=== PATIENT | male | born 1955 | race Caucasian/White ===

== ENCOUNTER 2020-01-13 11:29 | Emergency (ER) | payer BC, SELFPAY ==
[2020-01-13] VITALS (7 sets, daily range): BP systolic 107–156; BP diastolic 46–73; PULSE 60–90; RESP 16–20; TEMP 37.1; O2SAT 95–98
--- NOTE | ~2020-01-13 | XR_ITS ---
EXAMINATION: XR chest 1V portable DATE: 01/13/2020 12:13 INDICATION: Chest pressure. COVID. TECHNIQUE: frontal view of the chest was obtained. COMPARISON: Chest radiograph dated 01/21/2019 FINDINGS: The lungs remain clear with no focal airspace opacities, pulmonary edema, pleural effusion or pneumot horax. The cardiomediastinal silhouette is normal. Hypertrophic change at the anterior first ribs. IMPRESSION: 1. No acute cardiopulmonary disease. Reviewed, dictated and finalized at location A.
--- NOTE | 2020-01-13 11:40 | ECG_ITS ---
Measurements Intervals [place] Rate: 81 P: 18 MD: 180 QRS: -38 QRSD: 85 T: 24 QT: 356 QTc: 416 Interpretive Statements SINUS RHYTHM LEFT AXIS DEVIATION EARLY PRECORDIAL R/S TRANSITION LOW QRS VOLTAGE IN PRECORDIAL LEADS BASELINE WANDER- I, III, AVL, AVF BORDERLINE ECG Electronically Signed On 01-13-2020 15:01:20 CDT by Zana Rubi D.O.
[2020-01-13 11:53] LABS: Basophils Absolute Auto 0.1 K/mm3 (0.0-0.1); Basophils Percent Auto 0.7 % (0.2-1.2); Eosinophils Absolute Auto 0.1 K/mm3 (0-0.3); Eosinophils Percent Auto 1.8 % (0-4.4); Hematocrit 41.7 % (42.0-52.0); Hemoglobin 13.9 g/dL (14.0-18.0); Immature Granulocyte Absolute 0.01 K/mm3 (0.00-0.031); Immature Granulocyte Percent A 0.1 % (0-0.5); Lymphocytes Absolute Auto 1.56 K/mm3 (0.9-3.2); Lymphocytes Percent Auto 22.1 % (18.3-44.2); Mean Corpuscular HGB Conc 33.3 g/dl (32-36); Mean Corpuscular Volume 89.9 fl (80-100); Monocytes Absolute Auto 0.7 K/mm3 (0.1-0.6); Monocytes Percent Auto 10.5 % (2.6-8.5); Neutrophils Absolute Auto 4.6 K/mm3 (1.3-6.7); Neutrophils Percent Auto 64.8 % (45.5-73.1); Platelet Count Result 156 k/mm3 (150-375); Red Blood Count 4.64 M/mm3 (4.6-6.20); Red Cell Distribution Width 12.9 % (11.5-14.5); White Blood Count 7.1 K/mm3 (4.5-10.0)
[2020-01-13 12:02] LABS: Prothrombin Time 12.6 Seconds (11.1-14.7)
[2020-01-13 12:03] LABS: Partial Thromboplastin Time 28.6 SECONDS (22.3-36.8)
[2020-01-13 12:06] LABS: Anion Gap 9 mmol/L (8-16); Blood Urea Nitrogen 18 mg/dL (9-20); Calcium 8.8 mg/dL (8.4-10.2); Carbon Dioxide 25 mmol/L (22-30); Chloride 103 mmol/L (98-107); Estimated CRCL calculation 103 ml/min; Estimated Glomerular Filt Rate > 60; Glucose 106 mg/dL (75-110); Potassium 3.7 mmol/L (3.4-5.0); Sodium 137 mmol/L (137-145)
[2020-01-13] MEDS: ASPIRIN 81 MG CHEWABLE TABLET 324 MG PO (12:14)
[2020-01-13 12:18] LABS: Troponin I < 0.012 ng/mL (0.000-0.034)
--- NOTE | 2020-01-13 12:30 | ED.GENADULT ---
HPI - General Adult General Chief complaint: Upper Respiratory Infection Stated complaint: cold sx Time Seen by Provider: 01/13/20 11:53 Source: patient Mode of arrival: ambulatory Limitations: no limitations History of Present Illness HPI narrative: Patient is a 64-year-old male who presents to emergency department for evaluation of mild chest discomfort for the last 3 days patient notes that he was tested for COVID today due to a individual at work testing positive patient notes he is only had some minimal cough over the last several days patient denies cough abdominal pain shortness of breath or dyspnea patient took some [id number] cough medicine with minimal improvement on arrival is in the room in no distress Related Data Home Medications Medication Instructions Recorded Confirmed aspirin [Aspir-81] 01/13/20 dicyclomine 10 mg PO BID 01/13/20 diltiazem HCl [DILT-XR] 120 mg PO DAILY 01/13/20 lisinopril-hydrochlorothiazide 1 tablet PO DAILY 01/13/20 Allergies Allergy/AdvReac Type Severity Reaction Status Date / Time iodine Allergy Intermediate Dyspnea / Verified 01/13/20 11:33 SOB, RED FACE, red chest, hives Contrast Media Allergy Intermediate Hives / Uncoded 01/13/20 11:33 Red Face, SOB Review of Systems Review of Systems: All systems reviewed & are unremarkable except as noted in HPI and below PMFSH Past Medical History Medical History Hyperlipidemia Hypertension Obesity Surgical History Surgical History History of orthopedic surgery Family History Family History (Updated 09/10/16 @ 23:56 by DOCTOR UNKNOWN) Father Family history of chronic obstructive pulmonary disease, Onset Age: 72 Family history of emphysema Patient's father is Sibling Family history of chronic obstructive pulmonary disease Family history of diabetes mellitus in first degree relative Social History Social History Smoking status: Never smoker Smoking end date: 06/06/79 Alcohol intake: current Gender identity (if verbalized by the patient): Male Exam Narrative: Exam Narrative: GENERAL: Well-appearing, well-nourished, and in no acute distress. HEAD: Normocephalic, atraumatic. EYES: PERRLA and EOMI. ENT: Nares clear, no rhinorrhea or epistaxis. Mucous membranes moist. CHEST: Clear to auscultation. No respiratory distress. No wheezes rales or rhonchi HEART: Regular rate and rhythm. No murmur heard. Normal peripheral pulses. ABDOMEN: Soft, nontender, distended EXTREMITIES: Normal range of motion. No edema. SKIN: Warm, dry, no rash. NEURO: No focal deficits. Alert and oriented x3. PSYCH: Normal mood and affect. Course Course Emergency Course: Patient in the room in no distress aware of case findings treatment plan and diagnosis felt appropriate for outpatient reevaluation no high risk changes in the imaging or blood work made aware of the findings agreeing to follow with primary care for further evaluation and pending COVID tests Vital Signs Vital signs: Vital Signs Temperature 98.7 F 01/13/20 11:35 Pulse Rate 88 01/13/20 11:35 Respiratory Rate 18 01/13/20 11:35 Blood Pressure 156/73 H 01/13/20 11:35 Pulse Oximetry 97 01/13/20 11:35 Temperature 98.7 F 01/13/20 13:49 Pulse Rate 64 01/13/20 13:50 Respiratory Rate 16 01/13/20 13:50 Blood Pressure 126/46 L 01/13/20 13:50 Pulse Oximetry 98 01/13/20 13:50 Medical Decision Making MDM Narrative Medical decision making narrative: Patients EKGs and labs are without significant high risk changes. Cardiac risk factors were reviewed. Patient is felt likely to be low risk for ACS and reasonable for further risk stratification testing as an outpatient. Pain was not sudden or maximal in onset without tear
[2020-01-13 12:47] LABS: D Dimer 0.42 ug/mL (<0.48)
[2020-01-13] MEDS: FAMOTIDINE 20 MG/2 ML VIAL IV PUSH (13:19)
[2020-01-13 15:00] LABS: Troponin I < 0.012 ng/mL (0.000-0.034)
== END 2020-01-13 15:40 | disposition home or self-care (01) ==
PROVIDERS: Emergency Medicine Emergency Medical Services; Emergency Provider Emergency Medicine; PCP Family Medicine
DX: J06.9 Acute upper respiratory infection, unspecified (principal); Z20.828 Contact with and (suspected) exposure to other viral communicable diseases; Z79.82 Long term (current) use of aspirin; E78.5 Hyperlipidemia, unspecified; I10 Essential (primary) hypertension; E66.9 Obesity, unspecified; Z68.35 Body mass index [BMI] 35.0-35.9, adult; R94.31 Abnormal electrocardiogram [ECG] [EKG]
CPT/HCPCS: 36415; 71045; 80048; 84484; 85025; 85380; 85610; 85730; 93005; 96365; 96375; 99284; A9270; J0131

== ENCOUNTER 2021-01-09 10:57 | Emergency (ER) | payer OTHER, BC, SELFPAY ==
--- NOTE | ~2021-01-09 | XR_ITS ---
EXAMINATION: XR hip LT min 2V INDICATION: Left hip pain TECHNIQUE: Two views of left hip are obtained. COMPARISON: None available FINDINGS: Bone alignment is normal. There is no fracture. There is mild osteoarthritis. The soft tiss ues are unremarkable. IMPRESSION: 1. No acute osseous abnormality. Reviewed, dictated and finalized at location A.
[2021-01-09 11:08] VITALS: BP 129/62; PULSE 67; RESP 20; TEMP 36.5; O2SAT 98
[2021-01-09 11:21] VITALS: BP 129/62; PULSE 67; RESP 20; TEMP 36.5; O2SAT 98
--- NOTE | 2021-01-09 11:50 | ED.BACK ---
HPI - Back Pain/Injury General Chief Complaint: Back Pain/Injury Stated Complaint: lower back/hip pain Time Seen by Provider: 01/09/21 11:34 Source: patient and RN notes reviewed Mode of arrival: ambulatory Limitations: no limitations History of Present Illness HPI Narrative: Patient presents today complaining of left hip and low back pains since a fall at work on 11/29/2020. Reports that he slipped and fell on some oil and fell onto his left hip at that time. Patient reports pain at times radiates from the left low back laterally to the left hip. He is unable to lay on his left side in bed. He currently rates his pain 2/10 at rest. He has been taking Tylenol arthritis. Pain increases with movement as well as coughing and laughing. Denies loss of bowel or bladder control. Denies numbness or tingling. This is a Workmen's Comp. injury, but his job has not made strides to get him any evaluations or treatment. MD elicited complaint: back pain Related Data Home Medications Medication Instructions Recorded Confirmed aspirin [Aspir-81] 01/13/20 dicyclomine 10 mg PO BID 01/13/20 diltiazem HCl [DILT-XR] 120 mg PO DAILY 01/13/20 lisinopril-hydrochlorothiazide 1 tablet PO DAILY 01/13/20 atorvastatin 01/09/21 Allergies Allergy/AdvReac Type Severity Reaction Status Date / Time iodine Allergy Intermediate Dyspnea / Verified 01/13/20 11:33 SOB, RED FACE, red chest, hives Contrast Media Allergy Intermediate Hives / Uncoded 01/13/20 11:33 Red Face, SOB Review of Systems Review of Systems: CONSTITUTIONAL: Denies body aches, fever, chills, or sweats. EYES: Denies visual changes, redness, or discharge. ENT: Denies rhinorrhea, congestion, sore throat, or otalgia. CARDIOVASCULAR: Denies chest pain, palpitations, or edema. RESPIRATORY: Denies cough or dyspnea. GASTROINTESTINAL: Denies abdominal pain, nausea, vomiting, or diarrhea. GENITOURINARY: Denies dysuria or hematuria. SKIN: Denies rash, itching, or wounds. MUSCULOSKELETAL: Denies myalgia. + Low back pain, left hip pain NEUROLOGIC: Denies headache, numbness, tingling, or weakness. PSYCH: Denies depression or anxiety. PMFSH Past Medical History Medical History (Updated 01/09/21 @ 12:40 by Genie Brower, [facility], ) Hyperlipidemia Hypertension Obesity Surgical History Surgical History History of orthopedic surgery Family History Family History Father Family history of chronic obstructive pulmonary disease, Onset Age: 72 Family history of emphysema Patient's father is Sibling Family history of chronic obstructive pulmonary disease Family history of diabetes mellitus in first degree relative Social History Social History Smoking status: Never smoker Smoking end date: 06/06/79 Alcohol intake: current Gender identity (if verbalized by the patient): Male Comments At time of signature, I have reviewed and agree with nursing past medical, surgical, social and family history unless otherwise noted. Please see nursing chart for further information. There is no relevant family history pertinent to the presenting complaint Exam Narrative: GENERAL: Well-appearing, well-nourished, and in no acute distress. HEAD: Normocephalic, atraumatic. EYES: EOMI. No redness or drainage. Conjunctivae normal. ENT: Mucous membranes pink and moist. NECK: Normal AROM. CHEST: No respiratory distress. MUSCULOSKELETAL: No bony tenderness of the spine. Left lower lumbar paraspinal muscle tenderness. Left lateral hip tenderness. Distal sensation intact. Saddle sensation intact. Capillary refill normal. Pedal pulse normal. Foot push and pulls equal and strong. EXTREMITIES: No edema. Patient gets up from sitting position slowly due to
== END 2021-01-09 12:49 | disposition home or self-care (01) ==
PROVIDERS: Emergency Provider Nurse Practitioner
DX: S39.012A Strain of muscle, fascia and tendon of lower back, initial encounter (principal); W01.0XXA Fall on same level from slipping, tripping and stumbling without subsequent striking against object, initial encounter; Y99.0 Civilian activity done for income or pay; M54.32 Sciatica, left side; E78.5 Hyperlipidemia, unspecified; I10 Essential (primary) hypertension; E66.9 Obesity, unspecified; Z68.35 Body mass index [BMI] 35.0-35.9, adult
CPT/HCPCS: 73502; 99213; G0463

== ENCOUNTER 2021-09-24 08:14 | Emergency (ER) | payer MEDICARE, BC, MEDICAID, SELFPAY ==
--- NOTE | ~2021-09-24 | XR_ITS ---
EXAMINATION: XR chest 2V DATE: 09/24/2021 08:41 INDICATION: Left shoulder pain. Left chest pain. TECHNIQUE: Frontal and lateral views of the chest were obtained. COMPARISON: Chest single view 01/13/2020, chest CT 04/26/2012 FINDINGS: The chest demonstrates clear lungs without pneumonia, pleural effusion, or pneumothorax. Th e heart size is normal. IMPRESSION: 1. No acute cardiopulmonary disease. Reviewed, dictated and finalized at location B.
--- NOTE | 2021-09-24 08:19 | ECG_ITS ---
Measurements Intervals [place] Rate: 85 P: 33 [place]: 183 QRS: -35 QRSD: 92 T: 50 QT: 359 QTc: 428 Interpretive Statements SINUS RHYTHM MARKED LEFT AXIS DEVIATION [QRS AXIS < -30] LOW QRS VOLTAGE IN PRECORDIAL LEADS [QRS DEFLECTION < 1.0 mV IN CHEST LEADS] POSSIBLE RIGHT VENTRICULAR CONDUCTION DELAY [RSR (QR) IN V1/V2] BORDERLINE ECG COMPARED TO ECG 01/13/2020 11:44:38 NO SIGNIFICANT CHANGES Electronically Signed On 09-24-2021 16:49:20 CDT by Alex Day M.D.
[2021-09-24 08:21] VITALS: BP 133/97; PULSE 85; RESP 21; TEMP 36.9; O2SAT 96
--- NOTE | 2021-09-24 08:39 | PC.NURSE ---
Patient off unit to Radiology
[2021-09-24 08:40] LABS: Basophils Absolute Auto 0.1 K/mm3 (0.0-0.1); Basophils Percent Auto 0.9 % (0.2-1.2); Eosinophils Absolute Auto 0.2 K/mm3 (0-0.3); Eosinophils Percent Auto 2.6 % (0-4.4); Hematocrit 41.8 % (42.0-52.0); Hemoglobin 13.7 g/dL (14.0-18.0); Immature Granulocyte Absolute 0.02 K/mm3 (0.00-0.031); Immature Granulocyte Percent A 0.3 % (0-0.5); Lymphocytes Absolute Auto 1.49 K/mm3 (0.9-3.2); Lymphocytes Percent Auto 21.3 % (18.3-44.2); Mean Corpuscular HGB Conc 32.8 g/dl (32-36); Mean Corpuscular Hemoglobin 30.1 pg (26-34); Mean Corpuscular Volume 91.9 fl (80-100); Monocytes Absolute Auto 0.6 K/mm3 (0.1-0.6); Monocytes Percent Auto 8.7 % (2.6-8.5); Neutrophils Absolute Auto 4.6 K/mm3 (1.3-6.7); Neutrophils Percent Auto 66.2 % (45.5-73.1); Platelet Count Result 169 k/mm3 (150-375); Red Blood Count 4.55 M/mm3 (4.6-6.20); Red Cell Distribution Width 12.8 % (11.5-14.5)
--- NOTE | 2021-09-24 08:49 | PC.NURSE ---
Dr. Lerner at bedside to assess pt.
[2021-09-24 08:50] LABS: INR 1.1; Prothrombin Time 13.7 Seconds (11.1-14.7)
[2021-09-24 08:51] LABS: Partial Thromboplastin Time 31.3 SECONDS (22.3-36.8)
--- NOTE | 2021-09-24 08:57 | ED.GENADULT ---
HPI - General Adult General Chief complaint: Neck Pain/Injury Stated complaint: pain on left neck, arm Time Seen by Provider: 09/24/21 08:27 Source: patient Mode of arrival: ambulatory Limitations: no limitations History of Present Illness HPI narrative: Patient is 65 years old white male presented to the ED complaining of intermittent left shoulder pain for the last 15 years and since he had surgery on that shoulder, lately complaining of left neck pain but not today, also complaining of left lower leg pain for the last 3 days which is constant, worse with certain position. Patient been sedentary and sitting on the recliner since January 2021 because of lower back pain. Patient reported that he is a couch potato for months. Patient denies any fever, chills, nausea, vomiting, shortness of breath, chest pain. Related Data Home Medications Medication Instructions Recorded Confirmed aspirin [Aspir-81] 01/13/20 dicyclomine 10 mg PO BID 01/13/20 diltiazem HCl [DILT-XR] 120 mg PO DAILY 01/13/20 lisinopril-hydrochlorothiazide 1 tablet PO DAILY 01/13/20 atorvastatin 01/09/21 Allergies Allergy/AdvReac Type Severity Reaction Status Date / Time iodine Allergy Intermediate Dyspnea / Verified 09/24/21 08:31 SOB, RED FACE, red chest, hives Contrast Media Allergy Intermediate Hives / Uncoded 01/13/20 11:33 Red Face, SOB Review of Systems Review of Systems: CONSTITUTIONAL: Denies fever, chills, or sweats. EYES: Denies visual changes, redness, or discharge. ENT: Denies rhinorrhea, congestion, sore throat, or otalgia. CARDIOVASCULAR: Denies chest pain, palpitations, or edema. RESPIRATORY: Denies cough or dyspnea. GASTROINTESTINAL: Denies abdominal pain, nausea, vomiting, or diarrhea. GENITOURINARY: Denies dysuria or hematuria. SKIN: Denies rash or itching. MUSCULOSKELETAL: Denies back pain, joint pain, or myalgia. NEUROLOGIC: Denies headache, numbness, or weakness. PSYCHIATRIC: Denies anxiety or depression. [facility] Past Medical History Medical History (Updated 09/24/21 @ 09:06 by Irwin Lerner MD) Hyperlipidemia Hypertension Obesity Surgical History Surgical History History of orthopedic surgery Family History Family History Father Family history of chronic obstructive pulmonary disease, Onset Age: 72 Family history of emphysema Patient's father is Sibling Family history of chronic obstructive pulmonary disease Family history of diabetes mellitus in first degree relative Social History Social History Smoking status: Never smoker Smoking end date: 06/06/79 Alcohol intake: current Gender identity (if verbalized by the patient): Male Exam Narrative: General appearance: Well-developed, well-nourished, patient laying down in bed, semisitting position, does not look in pain or distress Skin: Normal color Head: Normocephalic, nontraumatic Eyes: Clear conjunctiva ENT: Oropharynx normal, ears normal, nose normal Neck: Supple, nontender Chest and respiratory: Airway patent, no respiratory distress, no accessory muscle use Heart: Regular rate/rhythm Abdomen: Soft, nontender, no organomegaly, quiet bowel sounds Vascular: Normal peripheral pulses, normal capillary refill. Musculoskeletal: Slight limited range of motion of left shoulder because of pain with certain movement, which have not showed no tenderness, no bruises, no rash Neurologic: Alert and oriented ?3, [employer]PECTING [employer]ATOR is normal as tested, no gross motor deficit Course Course
[2021-09-24 09:01] LABS: Alanine Aminotransferase 37 U/L (4-50); Albumin Level 4.1 g/dL (3.5-5.1); Alkaline Phosphatase 81 U/L (38-126); Anion Gap 5 mmol/L (8-16); Aspartate Amino Transferase 39 U/L (17-59); Blood Urea Nitrogen 17 mg/dL (9-20); Calcium 8.7 mg/dL (8.4-10.2); Carbon Dioxide 28 mmol/L (22-30); Chloride 104 mmol/L (98-107); Estimated CRCL calculation 95 ml/min; Estimated Glomerular Filt Rate > 60; Glucose 167 mg/dL (65-110); Lipase 44 U/L (23-300); Potassium 3.7 mmol/L (3.4-5.0); Sodium 137 mmol/L (137-145); Troponin I < 0.012 ng/mL (0.000-0.034)
[2021-09-24 09:15] VITALS: BP 131/78; PULSE 74; RESP 16; O2SAT 97
== END 2021-09-24 09:16 | disposition home or self-care (01) ==
PROVIDERS: Emergency Provider Emergency Medicine
DX: M25.512 Pain in left shoulder (principal); Z79.82 Long term (current) use of aspirin; E78.5 Hyperlipidemia, unspecified; I10 Essential (primary) hypertension; E66.9 Obesity, unspecified; Z68.25 Body mass index [BMI] 25.0-25.9, adult; Z87.891 Personal history of nicotine dependence; R94.31 Abnormal electrocardiogram [ECG] [EKG]; M79.662 Pain in left lower leg
CPT/HCPCS: 36415; 71046; 80053; 83690; 84484; 85025; 85610; 85730; 93005; 99284

== ENCOUNTER 2021-11-25 22:08 | Emergency (ER) | payer MEDICARE, BC, MEDICAID, SELFPAY ==
--- NOTE | ~2021-11-25 | XR_ITS ---
EXAMINATION: XR chest 2V Exam Date/Time: 11/25/2021 22:40 CDT HISTORY: SHORT SHARP RT SIDED CP,HX HTN Comparison: 09/24/2021. RESULT: Lines, tubes, and devices: None. Lungs and pleura: Clear. Cardiomediastinal silhouette: Stable cardiomediastinal silhouette. Other: No acute osseous or upper abdominal finding. IMPRESSION: No acute cardiopulmonary process. Reviewed, dictated and finalized at location K.
--- NOTE | 2021-11-25 22:14 | ECG_ITS ---
Measurements Intervals [place] Rate: 104 P: 28 SD: 107 QRS: 191 QRSD: 23 T: 91 QT: 277 QTc: 366 Interpretive Statements SINUS TACHYCARDIA LOW QRS VOLTAGE [QRS DEFLECTION < 0.5/1.0 mV IN LIMB/CHEST LEADS] EARLY PRECORDIAL R-WAVE TRANSITION BORDERLINE LEFTWARD AXIS COMPARED TO ECG 09/24/2021 08:24:17 NO SIGNIFICANT DIFFERENCE Electronically Signed On 11-27-2021 16:07:09 CDT by Ryder Fernando M.D.
[2021-11-25 22:16] VITALS: BP 165/74; PULSE 89; TEMP 36.6; O2SAT 99
[2021-11-25 22:41] LABS: Basophils Absolute Auto 0.1 K/mm3 (0.0-0.1); Basophils Percent Auto 0.7 % (0.2-1.2); Eosinophils Absolute Auto 0.1 K/mm3 (0-0.3); Eosinophils Percent Auto 1.6 % (0-4.4); Hematocrit 40.4 % (42.0-52.0); Immature Granulocyte Absolute 0.02 K/mm3 (0.00-0.031); Immature Granulocyte Percent A 0.2 % (0-0.5); Lymphocytes Absolute Auto 2.16 K/mm3 (0.9-3.2); Lymphocytes Percent Auto 24.9 % (18.3-44.2); Mean Corpuscular HGB Conc 32.2 g/dl (32-36); Mean Corpuscular Hemoglobin 29.3 pg (26-34); Mean Corpuscular Volume 91.2 fl (80-100); Monocytes Absolute Auto 0.8 K/mm3 (0.1-0.6); Neutrophils Absolute Auto 5.5 K/mm3 (1.3-6.7); Neutrophils Percent Auto 63.6 % (45.5-73.1); Platelet Count Result 166 k/mm3 (150-375); Red Blood Count 4.43 M/mm3 (4.6-6.20); Red Cell Distribution Width 12.9 % (11.5-14.5); White Blood Count 8.7 K/mm3 (4.5-10.0)
[2021-11-25 22:52] LABS: INR 1.1; Prothrombin Time 13.3 Seconds (11.1-14.7)
[2021-11-25 22:53] LABS: Partial Thromboplastin Time 33.5 SECONDS (22.3-36.8)
[2021-11-25 22:57] LABS: Alanine Aminotransferase 33 U/L (6-50); Albumin Level 4.3 g/dL (3.5-5.1); Alkaline Phosphatase 93 U/L (38-126); Anion Gap 7 mmol/L (8-16); Aspartate Amino Transferase 31 U/L (17-59); Bilirubin,Total 0.4 mg/dL (0.2-1.3); Blood Urea Nitrogen 18 mg/dL (9-20); Calcium 8.8 mg/dL (8.4-10.2); Carbon Dioxide 27 mmol/L (22-30); Chloride 106 mmol/L (98-107); Estimated CRCL calculation 120 ml/min; Estimated Glomerular Filt Rate > 60; Glucose 139 mg/dL (65-110); Lipase 69 U/L (23-300); Potassium 3.4 mmol/L (3.4-5.0); Sodium 140 mmol/L (137-145)
[2021-11-25 23:07] LABS: Troponin I < 0.012 ng/mL (0.000-0.034)
[2021-11-26] MEDS: ASPIRIN 81 MG CHEWABLE TABLET 324 MG PO (00:20)
--- NOTE | 2021-11-26 01:30 | ED.CHESTPAIN ---
HPI - Chest Pain General Chief Complaint: Chest Pain Stated Complaint: chest pain Time Seen by Provider: 11/26/21 00:58 History of Present Illness HPI narrative: 66-year-old male presented to the emergency department for evaluation of some intermittent right-sided chest pain. Patient states that at approximately 4 AM this morning he had a short brief right-sided muscle tightness. Patient denied any associate diaphoresis. Patient denied any radiation of the pain to his neck back or arm. Patient states he did have intermittent recurrent pain throughout the day. Patient states the pain does occur with rest and with your. Patient did start doing increased physical therapy and has been doing more lifting and resistance band working. Patient does use a resistance band to the point of muscle fatigue. Patient states this is a significant change in his physical activity. Patient denies any prior history of [place]. Patient reports he has also been taking some diet pills/herbal supplements. Patient reports he has not been drinking very much water. Related Data Home Medications Medication Instructions Recorded Confirmed aspirin 81 mg tablet,delayed 01/13/20 release (Aspir-) dicyclomine 10 mg capsule 10 mg PO BID 01/13/20 diltiazem HCl 120 mg 120 mg PO DAILY 01/13/20 capsule,extended release 24 hr, controlled (DILT-XR) lisinopril 20 1 tablet PO DAILY 01/13/20 mg-hydrochlorothiazide 25 mg tablet atorvastatin 40 mg tablet 01/09/21 Allergies Allergy/AdvReac Type Severity Reaction Status Date / Time iodine Allergy Intermediate Dyspnea / Verified 09/24/21 08:31 SOB, RED FACE, red chest, hives Contrast Media Allergy Intermediate Hives / Uncoded 01/13/20 11:33 Red Face, SOB Review of Systems Review of Systems: CONSTITUTIONAL: Denies fever, chills, or sweats. EYES: Denies visual changes, redness, or discharge. ENT: Denies rhinorrhea, congestion, sore throat, or otalgia. CARDIOVASCULAR: See HPI RESPIRATORY: Denies cough or dyspnea. GASTROINTESTINAL: Denies abdominal pain, nausea, vomiting, or diarrhea. GENITOURINARY: Denies dysuria or hematuria. SKIN: Denies rash or itching. MUSCULOSKELETAL: Denies back pain, joint pain, or myalgia. NEUROLOGIC: Denies headache, numbness, or weakness. [facility] Past Medical History Medical History (Updated 11/26/21 @ 02:18 by Sadi Wei MD) Hyperlipidemia Hypertension Obesity Surgical History Surgical History History of orthopedic surgery Family History Family History Father Family history of chronic obstructive pulmonary disease, Onset Age: 72 Family history of emphysema Patient's father is Sibling Family history of chronic obstructive pulmonary disease Family history of diabetes mellitus in first degree relative Social History Social History Smoking status: Never smoker Smoking end date: 06/06/79 Alcohol intake: current Gender identity (if verbalized by the patient): Male Exam Narrative: APPEARANCE: Well appearing, no pain, no distress, well-nourished. HEAD: normocephalic, atraumatic. EYES: PERRLA/EOMI, conjunctivae clear. NOSE: Normal no drainage THROAT: Pharynx clear, no exudate. NECK: Supple. No adenopathy, no masses. RESPIRATORY: Airway patent, respirations nonlabored. Clear to auscultation bilaterally, no rales, rhonchi, wheezing. CARDIOVASCULAR: Regular rate and rhythm without murmurs rubs or gallops. ABDOMINAL: Soft, nontender, nondistended, normal bowel sounds MUSCULOSKELETAL: Moves all extremities. Strength/ROM intact, No edema, No calf tenderness. NEURO: Alert. Cranial nerves II through XII intact. Grossly intact SKIN: Warm, dry. Normal Color Course Course Emergency Course: X-ray shows no acute cardiopulmonary abnormality. EKG
[2021-11-26 01:59] LABS: Troponin I < 0.012 ng/mL (0.000-0.034)
[2021-11-26 02:37] VITALS: BP 135/56; PULSE 76; RESP 18; O2SAT 99
== END 2021-11-26 02:46 | disposition home or self-care (01) ==
PROVIDERS: Emergency Provider Emergency Medicine; PCP Family Medicine
DX: R07.89 Other chest pain (principal); R00.0 Tachycardia, unspecified; I10 Essential (primary) hypertension; E78.5 Hyperlipidemia, unspecified
CPT/HCPCS: 36415; 71046; 80053; 83690; 84484; 85025; 85610; 85730; 93005; 99284; A9270

== ENCOUNTER 2022-01-18 10:09 | Emergency (ER) | payer MEDICARE, BC, MEDICAID, SELFPAY ==
--- NOTE | ~2022-01-18 | CT_ITS ---
EXAMINATION: CT abdomen pelvis wo con DATE: 01/18/2022 10:34 INDICATION: Low abdominal pain TECHNIQUE: Computed tomography (CT) of the abdomen and pelvis was performed without intravenous contr ast. The dose-length product was 1707.77 mGy-cm. Automated exposure control and iterative reconstruct ion technique were employed. COMPARISON: CT dated 01/18/2011. FINDINGS: Lung bases are unremarkable. Heart size is normal. No significant pleural or pericardial ef fusion. There is a 4.3 cm exophytic right renal cyst. Status post cholecystectomy. The liver, spleen, pancreas, adrenal glands are unremarkable. Nonobstructive bowel pattern. Small fat -containing umbilical hernia. Nonobstructive bowel pattern. Moderate fecal loading of the distal sigm oid colon and rectum. There is moderate osteoarthritis of the hips. There is a left renal cortical ca lcification measuring 2 mm. IMPRESSION: 1. No acute abdominal abnormality. Reviewed, dictated and finalized at location B.
[2022-01-18 10:17] VITALS: BP 177/82; PULSE 72; RESP 18; TEMP 36.6; O2SAT 96
--- NOTE | 2022-01-18 10:19 | ED.ABDPAIN ---
HPI - Abdominal Pain General Chief Complaint: Abdominal Pain Stated Complaint: constipation for 1 week Time Seen by Provider: 01/18/22 10:12 Source: RN notes reviewed History of Present Illness HPI narrative: Patient presents emerged department from home for constipation. Patient states that his last bowel movement was approximately 1 week ago. States he has been trying to take Dulcolax with minimal relief states it is associated with some mild lower abdominal pain as well as some rectal pain. He denies any fevers or chills nausea vomiting or any other symptoms abdominal pain described as cramping Related Data Home Medications Medication Instructions Recorded Confirmed aspirin 81 mg tablet,delayed 01/13/20 release (Aspir-) dicyclomine 10 mg capsule 10 mg PO BID 01/13/20 diltiazem HCl 120 mg 120 mg PO DAILY 01/13/20 capsule,extended release 24 hr, controlled (DILT-XR) lisinopril 20 1 tablet PO DAILY 01/13/20 mg-hydrochlorothiazide 25 mg tablet atorvastatin 40 mg tablet 01/09/21 Allergies Allergy/AdvReac Type Severity Reaction Status Date / Time iodine Allergy Intermediate Dyspnea / Verified 01/18/22 10:23 SOB, RED FACE, red chest, hives Contrast Media Allergy Intermediate Hives / Uncoded 01/18/22 10:23 Red Face, SOB Review of Systems Review of Systems: Gen.: Denies fevers or chills ENT: Denies congestion Respiratory: Denies shortness of breath or cough CV: Denies chest pain or palpitations GI: See HPI Musculoskeletal: Denies back pain or muscle pain Neuro: Denies numbness, tingling, weakness or focal weakness Skin: Denies rash Except as documented, all other systems reviewed and negative [facility] Past Medical History Medical History (Updated 01/18/22 @ 12:24 by Joel Hubbard DO) Hyperlipidemia Hypertension Obesity Surgical History Surgical History History of orthopedic surgery Family History Family History Father Family history of chronic obstructive pulmonary disease, Onset Age: 72 Family history of emphysema Patient's father is Sibling Family history of chronic obstructive pulmonary disease Family history of diabetes mellitus in first degree relative Social History Social History Smoking status: Never smoker Smoking end date: 06/06/79 Alcohol intake: current Gender identity (if verbalized by the patient): Male Exam Narrative: APPEARANCE: No acute distress, nontoxic, resting in bed HEENT: Normocephalic, atraumatic, OMM RESPIRATORY: No respiratory distress, clear to auscultation bilaterally with no rhonchi wheezing or rales CARDIOVASCULAR: RRR s murmur ABDOMINAL: Soft nondistended tender palpation right lower quadrant left lower quadrant no tenderness right upper quadrant left lower quadrant no rebound or guarding MUSCULOSKELETAl: Moves all extremities. No clubbing, cyanosis or edema. NEURO: Awake and alert. Following commands, speech normal, no focal deficits SKIN:: Warm, dry. Normal Color PSYCHIATRIC: Normal affect/mood Course Course Emergency Course: Patient with large bowel movement in ED states he is feeling much better Discussed with patient results of workup and diagnosis. Discussed need for follow-up with primary care, proper use of medication, and reasons to return to the emergency department. Patient understands and agrees to current treatment plan Vital Signs Vital signs: Vital Signs Temperature 98 F 01/18/22 10:17 Pulse Rate 72 01/18/22 10:17 Respiratory Rate 18 01/18/22 10:17 Blood Pressure 177/82 H 01/18/22 10:17 Pulse Oximetry 96 01/18/22 10:17 Temperature 98 F 01/18/22 10:17 Pulse Rate 72 01/18/22 10:17 Respiratory Rate 18 01/18/22 10:17 Blood Pressure 177/82 H 01/18/22 10:17 Pulse Oximetry 96
[2022-01-18 10:33] LABS: Basophils Percent Auto 0.6 % (0.2-1.2); Eosinophils Absolute Auto 0.1 K/mm3 (0-0.3); Eosinophils Percent Auto 2.1 % (0-4.4); Hematocrit 41.5 % (42.0-52.0); Hemoglobin 13.3 g/dL (14.0-18.0); Immature Granulocyte Absolute 0.01 K/mm3 (0.00-0.031); Immature Granulocyte Percent A 0.1 % (0-0.5); Lymphocytes Absolute Auto 1.42 K/mm3 (0.9-3.2); Lymphocytes Percent Auto 21.2 % (18.3-44.2); Mean Corpuscular Hemoglobin 29.2 pg (26-34); Mean Corpuscular Volume 91.2 fl (80-100); Mean Platelet Volume 11.3 fl (7.4-10.4); Monocytes Absolute Auto 0.8 K/mm3 (0.1-0.6); Monocytes Percent Auto 11.5 % (2.6-8.5); Neutrophils Absolute Auto 4.3 K/mm3 (1.3-6.7); Neutrophils Percent Auto 64.5 % (45.5-73.1); Platelet Count Result 158 k/mm3 (150-375); Red Blood Count 4.55 M/mm3 (4.6-6.20); Red Cell Distribution Width 13.3 % (11.5-14.5); White Blood Count 6.7 K/mm3 (4.5-10.0)
[2022-01-18 10:45] LABS: Alanine Aminotransferase 33 U/L (6-50); Albumin Level 4.2 g/dL (3.5-5.1); Alkaline Phosphatase 80 U/L (38-126); Anion Gap 9 mmol/L (8-16); Aspartate Amino Transferase 35 U/L (17-59); Bilirubin,Total 1.1 mg/dL (0.2-1.3); Blood Urea Nitrogen 21 mg/dL (9-20); Calcium 8.7 mg/dL (8.4-10.2); Carbon Dioxide 27 mmol/L (22-30); Chloride 103 mmol/L (98-107); Estimated CRCL calculation 105 ml/min; Estimated Glomerular Filt Rate > 60; Glucose 117 mg/dL (65-110); Lipase 38 U/L (23-300); Potassium 3.6 mmol/L (3.4-5.0); Sodium 139 mmol/L (137-145)
--- NOTE | 2022-01-18 11:46 | PC.NURSE ---
patient on bedside commode at this time. patient instructed to push call light if he needs assistance getting back into bed
[2022-01-18 12:29] VITALS: BP 131/59; RESP 18; O2SAT 96
== END 2022-01-18 12:33 | disposition home or self-care (01) ==
PROVIDERS: Emergency Provider Emergency Medicine; PCP Family Medicine
DX: K59.00 Constipation, unspecified (principal); I10 Essential (primary) hypertension; E78.5 Hyperlipidemia, unspecified
CPT/HCPCS: 36415; 74176; 80053; 83690; 85025; 99284

== ENCOUNTER 2022-05-14 09:58 | Emergency (ER) | payer MEDICARE, MEDICAID, SELFPAY ==
--- NOTE | 2022-05-14 09:59 | ED.DENTAL ---
HPI - Dental/Oral General Chief complaint: Dental/Oral Stated complaint: tooth pain Time Seen by Provider: 05/14/22 09:58 Source: patient Mode of arrival: ambulatory Limitations: no limitations History of Present Illness HPI Narrative: Mr. Minor is a 66-year-old male patient presenting to clinic today with complaints of left lower jaw pain x4 days. He reports he saw a dentist approximately 3 years ago and then removed all his teeth however they broke in his molar and was not able to remove the a complete molar as a nerve was wrapped around the tooth. He reports that he developed pain 4 days ago and it is radiating into his ear and into his maxillary and frontal sinuses. He denies any fever or chills. Related Data Home Medications Medication Instructions Recorded Confirmed aspirin 81 mg tablet,delayed 01/13/20 release (Aspir-) dicyclomine 10 mg capsule 10 mg PO BID 01/13/20 diltiazem HCl 120 mg 120 mg PO DAILY 01/13/20 capsule,extended release 24 hr, controlled (DILT-XR) lisinopril 20 1 tablet PO DAILY 01/13/20 mg-hydrochlorothiazide 25 mg tablet atorvastatin 40 mg tablet 01/09/21 Allergies Allergy/AdvReac Type Severity Reaction Status Date / Time iodine Allergy Intermediate Dyspnea / Verified 01/18/22 10:23 SOB, RED FACE, red chest, hives Contrast Media Allergy Intermediate Hives / Uncoded 01/18/22 10:23 Red Face, SOB Review of Systems Review of Systems: Pertinent positives per HPI. Patient denies any fever, chills, rash, visual changes, dizziness, cough, runny nose, sore throat, shortness of breath, chest pain, palpitations, nausea, vomiting, diarrhea, constipation, abdominal pain, or any urinary issues. [facility] Past Medical History Medical History Hyperlipidemia Hypertension Obesity Surgical History Surgical History History of orthopedic surgery Family History Family History Father Family history of chronic obstructive pulmonary disease, Onset Age: 72 Family history of emphysema Patient's father is Sibling Family history of chronic obstructive pulmonary disease Family history of diabetes mellitus in first degree relative Social History Social History Smoking status: Never smoker Smoking end date: 06/06/79 Alcohol intake: current Gender identity (if verbalized by the patient): Male Comments At the time of my signature, I reviewed and agree with the nursing past medical, surgical, social, and family history. There is no relevant family history pertinent to the patient complaint. Exam Narrative: General: Well-developed, obese, in no apparent distress Head: Normocephalic, atraumatic Eyes: Pupils equally round and reactive to light bilaterally, EOM intact, sclera and conjunctive clear, no discharge, lids normal Ears: TMs intact and clear, ear canals clear, no drainage, grossly hearing normal. Nose: Nares patent, no discharge, no inflammation, no sinus tenderness. Mouth: Oropharynx without lesions or masses, good dentition, MMM. tenderness to palpation of the left lower posterior gums with mild swelling and inflammation noted- partial broken tooth palpable with tenderness Neck: Supple, trachea midline, no enlargement of anterior or posterior cervical nodes, no thyroid masses or goiter palpable. Cardio: Regular rate and rhythm, s1 and s2 normal, no murmur appreciated. Resp: Clear to auscultation bilaterally anteriorly and posteriorly, no rhonchi, rales, wheezing or rubs Course Course Emergency Course: Portions of this record may have been created with voice recognition software. Level of Care: Express Care Visit Vital Signs Vital signs: Vital Signs Temperature 3
[2022-05-14 10:06] VITALS: BP 143/61; PULSE 65; RESP 16; TEMP 36.1; O2SAT 98
[2022-05-14 10:16] VITALS: BP 143/61; PULSE 65; RESP 16; TEMP 36.1; O2SAT 98
== END 2022-05-14 10:14 | disposition home or self-care (01) ==
PROVIDERS: Emergency Provider Nurse Practitioner Family; PCP Family Medicine
DX: L02.91 Cutaneous abscess, unspecified (principal); E78.5 Hyperlipidemia, unspecified; I10 Essential (primary) hypertension
CPT/HCPCS: 99213; G0463

== ENCOUNTER 2022-11-29 11:00 | Emergency (ER) | payer MEDICARE, MEDICAID, SELFPAY ==
[2022-11-29 11:13] VITALS: BP 147/79; PULSE 77; RESP 16; TEMP 36.4; O2SAT 98
[2022-11-29 12:43] VITALS: BP 124/69; PULSE 61; RESP 17; O2SAT 95
--- NOTE | 2022-11-29 13:09 | ED.EYEPROB ---
HPI - Eye Problem General Chief complaint: Eye Problems Stated complaint: ? fb in eye Time Seen by Provider: 11/29/22 12:15 Source: patient Mode of arrival: ambulatory Limitations: no limitations History of Present Illness HPI Narrative: This is a 67-year-old male who presents to the ED with chief complaint of right eye irritation beginning last night. Patient states that he was taking out the trash when he dropped the bag and a light bulb cracked. Patient states he felt like something got in his eye at that point. He seen several family members saw something like a black sliver in the lower medial corner of the right eye. They tried flushing the eye and using Visine. He states he is still having some irritation. Denies any acute visual change or double vision. Denies photophobia. Related Data Home Medications Medication Instructions Recorded Confirmed aspirin 81 mg tablet,delayed 81 mg DIRECTED 01/13/20 05/14/22 release (Aspir-) dicyclomine 10 mg capsule 10 mg PO BID 01/13/20 05/14/22 diltiazem HCl 120 mg 120 mg PO DAILY 01/13/20 05/14/22 capsule,extended release 24 hr, controlled (DILT-XR) lisinopril 20 1 tablet PO DAILY 01/13/20 05/14/22 mg-hydrochlorothiazide 25 mg tablet atorvastatin 40 mg tablet 40 mg DIRECTED 01/09/21 05/14/22 Allergies Allergy/AdvReac Type Severity Reaction Status Date / Time iodine Allergy Intermediate Dyspnea / Verified 11/29/22 12:34 SOB, RED FACE, red chest, hives Contrast Media Allergy Intermediate Hives / Uncoded 11/29/22 12:34 Red Face, SOB PMFSH Past Medical History Medical History (Updated 11/29/22 @ 13:24 by Reji Cruz PA-C) Hyperlipidemia Hypertension Obesity Surgical History Surgical History History of orthopedic surgery Family History Family History Father Family history of chronic obstructive pulmonary disease, Onset Age: 72 Family history of emphysema Patient's father is Sibling Family history of chronic obstructive pulmonary disease Family history of diabetes mellitus in first degree relative Social History Social History Smoking status: Never smoker Smoking end date: 06/06/79 Alcohol intake: current Gender identity (if verbalized by the patient): Male Exam Narrative: GENERAL: Well-appearing, well-nourished, and in no acute distress. HEAD: Normocephalic, atraumatic. EYES: PERRLA and EOMI. pressure bilaterally is 15 mmHg. Zhu lamp stain does not reveal any corneal abrasion or foreign body. 20/20 vision on the left, 20/25 on the right. Eye exam is overall intact. ENT: Nares clear, no rhinorrhea or epistaxis. Mucous membranes moist. Oropharynx without tonsillar hypertrophy exudate or other lesions. NECK: Supple. No adenopathy or masses. CHEST: No respiratory distress. Clear to auscultation. No wheezes rales or rhonchi HEART: Regular rate and rhythm. No murmur heard. Normal peripheral pulses. ABDOMEN: Soft, nontender, nondistended, normal active bowel sounds. MSK: Normal range of motion. No edema. SKIN: Warm, dry, no rash. NEURO: Alert and oriented x3. No focal deficits. PSYCH: Normal mood and affect. Course Vital Signs Vital signs: Vital Signs Temperature 97.6 F 11/29/22 11:13 Pulse Rate 77 11/29/22 11:13 Respiratory Rate 16 11/29/22 11:13 Blood Pressure 147/79 H 11/29/22 11:13 Pulse Oximetry 98 11/29/22 11:13 Oxygen Delivery Room Air 11/29/22 11:13 Temperature 97.6 F 11/29/22 11:13 Pulse Rate 61 11/29/22 13:36 Respiratory Rate 16 11/29/22 13:36 Blood Pressure 129/82 11/29/22 13:36 Pulse Oximetry 98 11/29/22 13:36 Oxygen Delivery Room Air 11/29/22 11:13 MDM - Eye Problem MDM Narrative Medical decision making narrativ
[2022-11-29 13:27] VITALS: BP 127/68; PULSE 61; RESP 16; O2SAT 98
[2022-11-29 13:36] VITALS: BP 129/82; PULSE 61; RESP 16; O2SAT 98
== END 2022-11-29 13:38 | disposition home or self-care (01) ==
PROVIDERS: Emergency Provider Physician Assistant; PCP Family Medicine
DX: H57.11 Ocular pain, right eye (principal); E78.5 Hyperlipidemia, unspecified; I10 Essential (primary) hypertension
CPT/HCPCS: 99283; A9270

== ENCOUNTER 2023-09-07 11:34 | Emergency (ER) | payer MEDICARE, MEDICAID, SELFPAY ==
--- NOTE | 2023-09-07 11:40 | ECG_ITS ---
Measurements Intervals [place] Rate: 67 P: 18 [place]: 196 QRS: -28 QRSD: 90 T: 38 QT: 388 QTc: 411 Interpretive Statements SINUS RHYTHM BASELINE ARTIFACT LOW QRS VOLTAGE IN PRECORDIAL LEADS BORDERLINE ECG COMPARED TO ECG 11/25/2021 22:24:37 SINUS RHYTHM NOW PRESENT Electronically Signed On 09-07-2023 14:50:25 CDT by Alex Day M.D.
--- NOTE | 2023-09-07 11:41 | ED.CHESTPAIN ---
HPI - Chest Pain General Chief Complaint: Chest Pain Stated Complaint: Chest Wall Pain Time Seen by Provider: 09/07/23 11:37 Source: patient Mode of arrival: ambulatory Limitations: no limitations History of Present Illness HPI narrative: Patient is a 59-year-old male who presents with intermittent right lower chest wall pain for 3 days. Patient called PCP and was told to come to urgent care for EKG. Patient has had similar symptoms in the past and it was muscular skeletal. Denies any shortness of breath, diaphoresis or pain radiating to jaw or down extremity. States it has been intermittent and there is tenderness on palpation. Patient also reports he has been lifting heavy wooden pallets. Denies any numbness or tingling to extremities. Does report increased stress due to difficulties in house. Patient had to go to [place] [address] this morning for son missing too many days of school. States he has had 1 panic attack in the past. Denies any history of AL. Related Data Home Medications Medication Instructions Recorded Confirmed aspirin 81 mg tablet,delayed 81 mg DIRECTED 01/13/20 09/07/23 release (Aspir-) dicyclomine 10 mg capsule 10 mg PO BID 01/13/20 09/07/23 diltiazem HCl 120 mg 120 mg PO DAILY 01/13/20 09/07/23 capsule,extended release 24 hr, controlled (DILT-XR) lisinopril 20 1 tablet PO DAILY 01/13/20 09/07/23 mg-hydrochlorothiazide 25 mg tablet atorvastatin 40 mg tablet 40 mg DIRECTED 01/09/21 09/07/23 Allergies Allergy/AdvReac Type Severity Reaction Status Date / Time iodine Allergy Intermediate Dyspnea / Verified 09/07/23 11:36 SOB, RED FACE, red chest, hives Contrast Media Allergy Intermediate Hives / Uncoded 09/07/23 11:36 Red Face, SOB Review of Systems Review of Systems: All systems reviewed & are unremarkable except as noted in HPI and below Constitutional: Constitutional: Denies body ache(s), Denies chills, Denies fatigue, Denies fever(s), Denies headache(s), Denies malaise and Denies weakness Eyes: Eyes: Denies blurry vision, Denies irritation and Denies loss of vision ENT: Denies otalgia, Denies headache(s), Denies nasal discharge, Denies sinus pain and Denies sore throat Cardiovascular: Cardiovascular: Reports chest pain (chest wall), Denies irregular heart rhythm and Denies dyspnea Respiratory: Respiratory: Denies dyspnea Gastrointestinal: Gastrointestinal: Denies abdominal pain, Denies melena, Denies hematochezia, Denies diarrhea, Denies nausea and Denies vomiting Musculoskeletal: Musculoskeletal: Denies back pain, Denies myalgias and Denies arthralgias Integumentary/Breasts: Skin/Breast: Denies pruritus and Denies rash Neurologic: Denies headache(s), Denies loss of vision and Denies weakness Psychiatric: Psychiatric: Reports no additional psychiatric complaints Endocrine: Endocrine: Denies fatigue PMFSH Past Medical History Medical History (Updated 09/07/23 @ 12:31 by Elmira Quiñones APRN) Hyperlipidemia Hypertension Obesity Surgical History Surgical History History of orthopedic surgery Family History Family History Father Family history of chronic obstructive pulmonary disease, Onset Age: 72 Family history of emphysema Patient's father is Sibling Family history of chronic obstructive pulmonary disease Family history of diabetes mellitus in first degree relative Social History Social History Smoking status: Never smoker Smoking end date: 06/06/79 Alcohol intake: current Gender identity (if verbalized by the patient): Male Comments At time of signature, agree with nursing past medical, surgical, social and family history. There is no relevant family history pertinent to the presenting complaint. Exam Const: General:
[2023-09-07 11:42] VITALS: BP 138/58; PULSE 70; RESP 18; TEMP 36.5; O2SAT 97
== END 2023-09-07 12:38 | disposition home or self-care (01) ==
PROVIDERS: Emergency Provider Nurse Practitioner Family; PCP Family Medicine
DX: R07.89 Other chest pain (principal); S29.011A Strain of muscle and tendon of front wall of thorax, initial encounter; S21.101A Unspecified open wound of right front wall of thorax without penetration into thoracic cavity, initial encounter; X50.3XXA Overexertion from repetitive movements, initial encounter; E78.5 Hyperlipidemia, unspecified; I10 Essential (primary) hypertension; E66.9 Obesity, unspecified; Z68.23 Body mass index [BMI] 23.0-23.9, adult
CPT/HCPCS: 93005; 99213; G0463

== ENCOUNTER 2023-10-25 23:02 | Observation (INO) | payer MEDICARE, MEDICAID, SELFPAY ==
[2023-10-25 23:02] VITALS: BP 131/65; PULSE 67; RESP 16; TEMP 36.4; O2SAT 100
[2023-10-26] VITALS (9 sets, daily range): BP systolic 125–143; BP diastolic 53–78; PULSE 61–93; RESP 16–20; TEMP 36.2–36.4; O2SAT 98–100; BMI 36.9
--- NOTE | 2023-10-26 00:29 | ECG_ITS ---
SEE SCANNED COPY FOR CONFIRMED REPORT MTDD
[2023-10-26 01:04] LABS: Basophils Absolute Auto 0.1 K/mm3 (0.0-0.1); Basophils Percent Auto 0.6 % (0.2-1.2); Eosinophils Absolute Auto 0.1 K/mm3 (0-0.3); Eosinophils Percent Auto 1.1 % (0-4.4); Hematocrit 41.3 % (42.0-52.0); Hemoglobin 13.2 g/dL (14.0-18.0); Immature Granulocyte Absolute 0.03 K/mm3 (0.00-0.031); Immature Granulocyte Percent A 0.3 % (0-0.5); Lymphocytes Absolute Auto 1.28 K/mm3 (0.9-3.2); Lymphocytes Percent Auto 14.3 % (18.3-44.2); Mean Corpuscular Hemoglobin 29.5 pg (26-34); Mean Corpuscular Volume 92.2 fl (80-100); Mean Platelet Volume 11.2 fl (7.4-10.4); Monocytes Absolute Auto 0.8 K/mm3 (0.1-0.6); Monocytes Percent Auto 8.7 % (2.6-8.5); Neutrophils Absolute Auto 6.7 K/mm3 (1.3-6.7); Platelet Count Result 143 k/mm3 (150-375); Red Blood Count 4.48 M/mm3 (4.6-6.20); Red Cell Distribution Width 12.8 % (11.5-14.5); White Blood Count 8.9 K/mm3 (4.5-10.0)
[2023-10-26 01:09] LABS: Alanine Aminotransferase 32 U/L (6-50); Albumin Level 4.2 g/dL (3.5-5.1); Alkaline Phosphatase 96 U/L (38-126); Anion Gap 4 mmol/L (4-12); Aspartate Amino Transferase 40 U/L (17-59); Bilirubin,Total 0.7 mg/dL (0.2-1.3); Blood Urea Nitrogen 14 mg/dL (9-20); Calcium 9.1 mg/dL (8.4-10.2); Carbon Dioxide 29 mmol/L (22-30); Chloride 106 mmol/L (98-107); Estimated CRCL calculation 110 ml/min; Estimated Glomerular Filt Rate > 60; Glucose 128 mg/dL (65-110); Potassium 3.3 mmol/L (3.4-5.0); Sodium 139 mmol/L (137-145)
[2023-10-26 03:28] LABS: Troponin I < 0.012 ng/mL (0.000-0.034)
--- NOTE | 2023-10-26 04:01 | ED.DIZZY ---
HPI - Dizziness General Chief Complaint: Syncope Stated Complaint: syncope Time Seen by Provider: 10/26/23 02:08 History of Present Illness HPI Narrative: Patient is a 68-year-old male who presents to the emergency department this evening complaining of a near syncopal episode. Patient states that he was laying on the ground with his legs up on the bed playing with his dog and accidentally got up too fast and felt extremely lightheaded. Patient states that normally when he gets up too fast he feels lightheaded but this time the lightheadedness lasted too long prompting him to call EMS and come to the emergency department for further evaluation. Patient states that shortly after he felt very diaphoretic and states then has been feeling not like himself. He denies falling, denies hitting his head and denies any chest pain or shortness of breath at this time. No additional symptoms or concerns at this time. Related Data Home Medications Medication Instructions Recorded Confirmed aspirin 81 mg tablet,delayed 81 mg DIRECTED 01/13/20 09/07/23 release (Aspir-) dicyclomine 10 mg capsule 10 mg PO BID 01/13/20 09/07/23 diltiazem HCl 120 mg 120 mg PO DAILY 01/13/20 09/07/23 capsule,extended release 24 hr, controlled (DILT-XR) lisinopril 20 1 tablet PO DAILY 01/13/20 09/07/23 mg-hydrochlorothiazide 25 mg tablet atorvastatin 40 mg tablet 40 mg DIRECTED 01/09/21 09/07/23 Allergies Allergy/AdvReac Type Severity Reaction Status Date / Time iodine Allergy Intermediate Dyspnea / Verified 09/07/23 11:36 SOB, RED FACE, red chest, hives Contrast Media Allergy Intermediate Hives / Uncoded 09/07/23 11:36 Red Face, SOB Review of Systems Review of Systems: All systems are reviewed and are negative unless stated otherwise in the HPI. [facility] Past Medical History Medical History Hyperlipidemia Hypertension Obesity Surgical History Surgical History History of orthopedic surgery Family History Family History Father Family history of chronic obstructive pulmonary disease, Onset Age: 72 Family history of emphysema Patient's father is Sibling Family history of chronic obstructive pulmonary disease Family history of diabetes mellitus in first degree relative Social History Social History Smoking status: Never smoker Smoking end date: 06/06/79 Alcohol intake: current Gender identity (if verbalized by the patient): Male Exam Narrative: General: Alert, awake, afebrile, in no acute distress. HEENT: PERRL, no rhinorrhea, no post nasal drip, oropharynx clear. Cardiovascular: Regular rate and rhythm, no murmurs, rubs or gallops, no peripheral edema. Respiratory: Clear to auscultation bilaterally, no tachypnea, no wheezing, no rhonchi, no rubs, no respiratory distress. Abdomen: Soft, nontender, nondistended, no rebound, no guarding, no peritoneal signs. Musculoskeletal: No joint swelling or deformity, normal muscle tone. Skin: No rashes or petechia, no signs of infection. Neurological: Alert and oriented to person, place, and time. Follows all commands. 5/5 motor strength in the bilateral upper and lower extremity, sensation intact bilateral upper and lower extremity, cranial nerves 2-12 grossly intact, speech is clear and fluent. Course Vital Signs Vital signs: Vital Signs Temperature 97.5 F L 10/25/23 23:02 Pulse Rate 67 10/25/23 23:02 Respiratory Rate 16 10/25/23 23:02 Blood Pressure 131/65 10/25/23 23:02 Pulse Oximetry 100 10/25/23 23:02 Oxygen Delivery Room Air 10/25/23 23:02 Temperature 97.5 F L 10/25/23 23:02 Pulse Rate 63 10/26/23 02:22 Respiratory Rate 17 10/26/23 02:22 Blood Pressure
--- NOTE | 2023-10-26 04:35 | PM.IMHP ---
H&P: HPI History of Present Illness Date/Time: 10/26/23 04:35 Chief Complaint: dizziness Narrative: patient is a 68-year-old who comes to the emergency room complaints of dizziness patient has been in the emergency room for a while and still does not feel good. Patient state he was laying on the ground with his legs and playing with his dog started feeling lightheaded and called the paramedics was brought to the emergency room. Patient was very diaphoretic also on blood pressure medications at home no history of any chest pain no headaches dizziness no history of COPD no lung injury no recent travels. Patient compliant with his blood pressure medication and statins no diarrhea or any GI symptoms shortness she Review of Systems Review of Systems: All systems reviewed & are unremarkable except as noted in HPI and below PMFSH Past Medical History Medical History (Updated 10/26/23 @ 04:36 by Major Nava MD) Hyperlipidemia Hypertension Obesity Surgical History Surgical History History of orthopedic surgery Family History Family History Father Family history of chronic obstructive pulmonary disease, Onset Age: 72 Family history of emphysema Patient's father is Sibling Family history of chronic obstructive pulmonary disease Family history of diabetes mellitus in first degree relative Social History Social History Smoking status: Never smoker Smoking end date: 06/06/79 Alcohol intake: current Gender identity (if verbalized by the patient): Male Meds Home Medications and Allergies Home Medications Medication Instructions Recorded Confirmed Type aspirin 81 mg tablet,delayed 81 mg DIRECTED 01/13/20 09/07/23 History release (Aspir-) dicyclomine 10 mg capsule 10 mg PO BID 01/13/20 09/07/23 History diltiazem HCl 120 mg 120 mg PO DAILY 01/13/20 09/07/23 History capsule,extended release 24 hr, controlled (DILT-XR) lisinopril 20 1 tablet PO DAILY 01/13/20 09/07/23 History mg-hydrochlorothiazide 25 mg tablet atorvastatin 40 mg tablet 40 mg DIRECTED 01/09/21 09/07/23 History Allergies Allergy/AdvReac Type Severity Reaction Status Date / Time iodine Allergy Intermediate Dyspnea / Verified 09/07/23 11:36 SOB, RED FACE, red chest, hives Contrast Media Allergy Intermediate Hives / Uncoded 09/07/23 11:36 Red Face, SOB Vital Signs Vital Signs - 24 hr 10/25/23 23:02 10/26/23 01:38 10/26/23 01:39 Temperature 36.4 C L Pulse Rate 67 85 93 Respiratory Rate 16 Blood Pressure 131/65 125/67 135/78 Pulse Oximetry 100 Oxygen Delivery Room Air 10/26/23 01:40 10/26/23 02:22 Temperature Pulse Rate 87 63 Respiratory Rate 17 Blood Pressure 143/67 H 128/76 Pulse Oximetry 100 Oxygen Delivery Exam Narrative: GENERAL: Well appearing, no acute distress. HEAD: Normocephalic, atraumatic. NECK: Supple. No adenopathy, no masses. RESPIRATORY: respirations nonlabored. , no rales, wheezing. CARDIOVASCULAR: Regular rate and rhythm without murmurs, . Peripheral pulses 2+ and equal bilaterally. ABDOMINAL: Soft, nontender, nondistended, no hepatosplenomegaly. Normoactive BS. MUSCULOSKELETAL: no Epigastric and no hypochondrial tenderness SKIN: Warm, dry, NEURO: A&O X3. Moves all extremities H&P: Results Labs Labs: Short CBC 10/26/23 Range/Units 00:45 WBC 8.9 (4.5-10.0) K/mm3 Hgb 13.2 L (14.0-18.0) g/dL Hct 41.3 L (42.0-52.0) % Plt Count 143 L (150-375) k/mm3 BMP 10/26/23 00:45 Sodium 139 Potassium 3.3 L Chloride 106 Carbon Dioxide 29 BUN 14 D Creatinine 0.80 Glucose 128 H Calcium 9.1 Cardiac Enzymes 10/26/23 Range/Units 00:45 Troponin I < 0.012 (0.000-0.034) ng/mL Liver Fu
--- NOTE | 2023-10-26 05:41 | ADMGEN ---
This patient, Alberto Minor, was admitted to [facility] Surg Room 322-02. Patient/family oriented to hospital policies and general routines including ID bracelet, bed and alarms, visiting hours, pain management, procedures, bathroom and other care routines, personal items, smoking policy, room service/diet, and visiting hours. Information on how to activate the Rapid Response Team has been discussed. Patient/Family are encouraged to report perceived risks to care and to ask questions if they do not understand what they are told or what they should do.
[2023-10-26] MEDS: SODIUM CHLORIDE 0.9% IV 1,000 ML 100 ML IV CONT (06:11)
[2023-10-26 06:41] LABS: Alanine Aminotransferase 29 U/L (6-50); Albumin Level 3.9 g/dL (3.5-5.1); Alkaline Phosphatase 89 U/L (38-126); Anion Gap 4 mmol/L (4-12); Aspartate Amino Transferase 30 U/L (17-59); Bilirubin,Total 0.8 mg/dL (0.2-1.3); Blood Urea Nitrogen 12 mg/dL (9-20); Calcium 8.7 mg/dL (8.4-10.2); Carbon Dioxide 27 mmol/L (22-30); Chloride 108 mmol/L (98-107); Estimated CRCL calculation 127 ml/min; Estimated Glomerular Filt Rate > 60; Glucose 103 mg/dL (65-110); Potassium 3.3 mmol/L (3.4-5.0); Sodium 139 mmol/L (137-145)
[2023-10-26] MEDS: ASPIRIN 81 MG ENTERIC TABLET BY MOUTH (08:30)
[2023-10-26] MEDS: ATORVASTATIN 40 MG TABLET BY MOUTH (08:30)
[2023-10-26] MEDS: POTASSIUM CHLORIDE 20 MEQ ER TABLET 40 MEQ PO (08:30)
[2023-10-26] MEDS: lisinopriL 20 MG TABLET PO (08:31)
[2023-10-26] MEDS: ENOXAPARIN 40 MG/0.4 ML SYRINGE SUB-Q (08:31)
--- NOTE | 2023-10-26 14:22 | PM.DS ---
DS: Admitting Diagnosis Discharge Date 10/26/23 Admitting Diagnosis Dizziness DS: Discharge Diagnosis Discharge Diagnosis (1) Near syncope: Code(s): R55 - Syncope and collapse Status: Acute (2) Hypokalemia: Code(s): E87.6 - Hypokalemia Status: Acute (3) Hypertension: Code(s): I10 - Essential (primary) hypertension Status: Acute Plan DS: Summary Hospital Course Reason for hospitalization: 68yo male with HTN here for dizziness. Please see H&P for details. Hospital Course: Patient presents to the ED complaining of a near syncopal episode.? Patient states that he was laying on the ground with his legs up on the bed playing with his dog and accidentally got up too fast and felt extremely lightheaded.? Patient states that normally when he gets up too fast, he feels lightheaded but this time the lightheadedness lasted too long prompting him to call EMS. He also felt diaphoretic and states then has been feeling not like himself.? He denies falling, denies hitting his head and denies any CP, SOB or additional symptoms or concerns. In the ED, he was hemodynamically stable. Normal white count. Hemoglobin 13.2 which is stable. Platelet count slightly low at 143 K. CMP was normal except for a glucose of 128 and potassium 3.3. Troponin was negative. No imaging was done. EKG showed normal sinus rhythm with left axis deviation. He was given IV fluids. Potassium was replaced. He was started back on aspirin, Lipitor and lisinopril. Orthostatic blood pressures were normal. Patient is on lisinopril/HCTZ and diltiazem. He has lost weight recently so blood pressure may be too well controlled which might explain his symptoms. He was also out working in the yard on a hot day which could have contributed to his symptoms. There is a notation in the chart the patient had hyponatremia but this is incorrect. Sodium was normal throughout his hospital course. He feels well. Been up ambulating to the bathroom. He overall did well was able be discharged home on 10/26/2023. Status at Discharge Cognitive/behavioral status at discharge: stable Time Spent with Patient Time attestation: Total time spent providing and/or coordinating discharge services: 35 minutes Time spent: Greater than 30 minutes Exam Narrative: AF 97.2 135/53 66 20 99% ra Gen - NARD Chest - CTA bilaterally, nml RR CV - RRR S1/S2 Abd - Soft, NT/ND, Positive BS Ext - No pedal edema Neuro - Alert and oriented. Nonfocal exam. Heel to ayala and rapid finger tap normal. Psych - Nml mood and affect Skin - Warm and dry DS: Data Data Completed and Pending Labs on day of discharge: Labs from last 24 hours 10/26/23 10/26/23 06:00 00:45 WBC 8.9 RBC 4.48 L Hgb 13.2 L Hct 41.3 L MCV 92.2 MCH 29.5 MCHC 32.0 RDW 12.8 Plt Count 143 L MPV 11.2 H Immature Gran % (Auto) 0.3 Neut % (Auto) 75.0 H Lymph % (Auto) 14.3 L Rhea % (Auto) 8.7 H Eos % (Auto) 1.1 Baso % (Auto) 0.6 Lymph # (Auto) 1.28 Rhea # (Auto) 0.8 H Eos # (Auto) 0.1 Baso # (Auto) 0.1 Abs Immat Gran (auto) 0.03 Absolute Neuts (auto) 6.7 Absolute Nucleated RBC 0.000 Nucleated RBC % 0.0 Sodium 139 139 Potassium 3.3 L 3.3 L Chloride 108 H 106 Carbon Dioxide 27 29 Anion Gap 4 4 BUN 12 14 D Creatinine 0.70 0.80 Estim Creat Clear Calc 127 110 Estimated GFR > 60 > 60 Glucose 103 128 H Calcium 8.7 9.1 Magnesium 2.0 Total Bilirubin 0.8 0.7 AST 30 40 ALT 29 32 Alkaline Phosphatase 89 96 Troponin I < 0.012 Total Protein 7.0 7.0 Albumin 3.9 4.2 Discharge Plan Discharge Attending physician on discharge: Rico Hays Discharging Clinician: Rico Hays Anticipated Discharge Date/Time: 10/26/23 14:31 Patient Disposition: Home, Self-Care Activity: as tolerated Diet: heart healthy Discharge Instructions: Check blood pres
== END 2023-10-26 15:11 | disposition home or self-care (01) ==
LOC: ANHED 10-26 04:02 → ANH3MEDSUR 10-26 05:19
PROVIDERS: Admitting Provider Internal Medicine; Emergency Provider Emergency Medicine; PCP Family Medicine; Visit Provider Internal Medicine
DX: R55 Syncope and collapse (principal); E87.6 Hypokalemia; E87.1 Hypo-osmolality and hyponatremia; I10 Essential (primary) hypertension; E78.5 Hyperlipidemia, unspecified; E66.9 Obesity, unspecified; Z68.37 Body mass index [BMI] 37.0-37.9, adult; Z79.82 Long term (current) use of aspirin
CPT/HCPCS: 36415; 80053; 83735; 84484; 85025; 93005; 96372; 99285; A9270; G0378; J1650; J7030

== ENCOUNTER 2025-01-09 10:38 | Emergency (ER) | payer MEDICARE, MEDICAID, SELFPAY ==
--- NOTE | ~2025-01-09 | XR_ITS ---
EXAMINATION: XR chest 2V DATE: 01/09/2025 11:47 INDICATION: Dizziness. Asthma. TECHNIQUE: PA and lateral views of the chest were obtained. COMPARISON: Chest radiograph dated 11/25/2021 FINDINGS: The lungs are clear with no focal airspace opacities, pulmonary edema, pleural effusion or pneumothor ax. The cardiomediastinal silhouette is normal. Mild thoracic spondylosis. Prior distal left clavicle resection. IMPRESSION: 1. No acute cardiopulmonary disease. Reviewed, dictated and finalized at location A.
[2025-01-09 10:41] VITALS: BP 149/61; PULSE 78; RESP 16; TEMP 36.7; O2SAT 97
--- NOTE | 2025-01-09 11:19 | ECG_ITS ---
Test Date: 2025-01-09 11:28:16 Measurements Intervals [place] Rate: 68 P: 22 [place]: 191 QRS: -35 QRSD: 89 T: 44 QT: 384 QTc: 411 Interpretive Statements SINUS RHYTHM LEFT AXIS DEVIATION EARLY PRECORDIAL R/S TRANSITION LOW QRS VOLTAGE IN PRECORDIAL LEADS BORDERLINE ECG No previous ECG available for comparison Electronically Signed On 01-09-2025 11:35:06 CDT by Zana Rubi D.O.
[2025-01-09 11:25] VITALS: BP 144/66; PULSE 79; RESP 18; O2SAT 97
[2025-01-09 11:56] LABS: Hematocrit 40.2 % (42.0-52.0); Hemoglobin 12.9 g/dL (14.0-18.0); Immature Granulocyte Percent A 0.3 % (0-0.5); Lymphocytes Absolute Auto 1.27 K/mm3 (0.9-3.2); Mean Corpuscular HGB Conc 32.1 g/dl (32-36); Mean Corpuscular Hemoglobin 28.9 pg (26-34); Mean Corpuscular Volume 90.1 fl (80-100); Nucleated Red Blood Cells Absolute Auto 0.000 K/mm3 (0.0-0.012); Nucleated Red Blood Cells Perc 0.0 % (0.0-0.2); Platelet Count Result 162 k/mm3 (150-375); Red Blood Count 4.46 M/mm3 (4.6-6.20); White Blood Count 7.0 K/mm3 (4.5-10.0)
[2025-01-09 12:02] LABS: Alanine Aminotransferase 34 U/L (6-50); Albumin Level 3.9 g/dL (3.5-5.1); Alkaline Phosphatase 84 U/L (38-126); Anion Gap 7 mmol/L (4-12); Aspartate Amino Transferase 44 U/L (17-59); Bilirubin,Total 0.9 mg/dL (0.2-1.3); Blood Urea Nitrogen 14 mg/dL (9-20); Calcium 9.2 mg/dL (8.4-10.2); Carbon Dioxide 25 mmol/L (22-30); Chloride 107 mmol/L (98-107); Estimated CRCL calculation 112 ml/min; Estimated Glomerular Filt Rate > 60; Glucose 114 mg/dL (65-110); Potassium 3.6 mmol/L (3.4-5.0); Sodium 139 mmol/L (137-145); Total Protein 6.6 g/dL (6.3-8.2)
[2025-01-09] MEDS: MECLIZINE HCL 25 MG TABLET PO (12:03)
--- NOTE | 2025-01-09 14:14 | ED.GENADULT ---
HPI - General Adult General Chief complaint: Dizziness Stated complaint: dizzy Time Seen by Provider: 01/09/25 11:16 History of Present Illness HPI narrative: Patient is a 6-year-old male who presents ER with dizziness. Ongoing since last night. Worse with lying down and movements of his head. Occasional nausea. No numbness or tingling to an arm or leg. No slurred speech. Has not had similar symptoms before. No sinus congestion or sore throat or productive cough. No ringing in the ear. Related Data Home Medications ?Medication ?Instructions ?Recorded ?Confirmed ?Last Taken ?Type aspirin 81 mg tablet,delayed 81 mg DIRECTED 01/13/20 10/26/23 10/25/23 History release (Aspir-) diltiazem HCl 120 mg 120 mg PO DAILY 01/13/20 10/26/23 10/25/23 History capsule,extended release 24 hr, controlled (DILT-XR) lisinopril 20 1 tablet PO DAILY 01/13/20 10/26/23 10/25/23 History mg-hydrochlorothiazide 25 mg tablet atorvastatin 40 mg tablet 40 mg DIRECTED 01/09/21 10/26/23 10/25/23 History coQ10 (ubiquinol) 100 mg capsule 100 mg PO DAILY 10/26/23 10/26/23 10/25/23 History Allergies Allergy/AdvReac Type Severity Reaction Status Date / Time iodine Allergy Intermediate Dyspnea / Verified 01/09/25 10:43 SOB, RED FACE, red chest, hives Contrast Media Allergy Intermediate Hives / Uncoded 01/09/25 10:43 Red Face, SOB Review of Systems Review of Systems: All systems reviewed & are unremarkable except as noted in HPI and below Constitutional: Constitutional: Reports no additional constitutional complaints ENT: Reports system reviewed and no additional complaints, except as documented Cardiovascular: Cardiovascular: Reports no additional cardiovascular complaints Respiratory: Respiratory: Reports no additional respiratory complaints Genitourinary: Genitourinary: Reports no additional male genitourinary complaints [facility] Past Medical History Medical History (Updated 01/09/25 @ 14:19 by Janes Bullock MD) Obesity Hyperlipidemia Hypertension Surgical History Surgical History History of orthopedic surgery Family History Family History Father Family history of chronic obstructive pulmonary disease, Onset Age: 72 Family history of emphysema Patient's father is Sibling Family history of chronic obstructive pulmonary disease Family history of diabetes mellitus in first degree relative Social History Social History Smoking status: Never smoker Second hand tobacco smoke exposure: No Smoking end date: 06/06/79 Alcohol intake: never Substance use: never Substance use type: does not use Do You Feel Safe in your Home?: Yes Lack of Transportation: No Lack of Food: Never True Current Housing: I Have Housing Concerned About Future Housing: No Difficulty Paying Gas/Electric Bills: No Difficulty Paying for Meds: No Currently Unemployed: No Education: Trade/Vocational Certificate Difficulty w/ Childcare or Family Care: No Gender identity (if verbalized by the patient): Male Spiritual care concerns: No Exam Narrative: GENERAL: Well-appearing, well-nourished, and in no acute distress. HEAD: Normocephalic, atraumatic. EYES: PERRL, EOMI, right gaze nystagmus ENT: Mucous membranes moist. TMs normal bilaterally. CHEST: Clear to auscultation. No respiratory distress. HEART: Regular rate and rhythm. Normal peripheral pulses. ABDOMEN: Soft, nontender, nondistended. EXTREMITIES: Normal range of motion. No edema. SKIN: Warm, dry, no rash. NEURO: Alert and oriented x3. No upper or lower extremity drift. Clear speech. No facial droop. PSYCH: Normal mood and affect. Course Course Emergency Course: Patient feels markedly improved after meclizine. Appropriate for discharge home. Ambulates without issue. Vital Signs Vital signs: Vital Signs Temperature 98.0 F 01/09/25 10:41 Pulse Rate 78 01/09/25 10:41 Respiratory Rate 16 01/09/25 10:41 Blood Pressure 149/61 H 01/09/25 10:41 Pulse Oximetry 97 01/09/25 10:41 Oxygen Delivery Room Air 01/09/25 10:41 Temperature 98.0 F 01/09/25 10:41 Pulse Rate 79 01/09/25 11:25 Respiratory Rate 18 01/09/25 11:25 Blood Pressure 144/66 H 01/09/25 11:25 Pulse Oximetry 97 01/09/25 11:25 Oxygen Delivery Room Air 01/09/25 10:41 Medical Decision Making Vital Signs Vital Signs: Vital Signs Temperature 98.0 F 01/09/25 10:41 Pulse Rate 78 01/09/25 10:41 Respiratory Rate 16 01/09/25 10:41 Blood Pressure 149/61 H 01/09/25 10:41 Pulse Oximetry 97 01/09/25 10:41 Oxygen Delivery Room Air 01/09/25 10:41 Temperature 98.0 F 01/09/25 10:41 Pulse Rate 79 01/09/25 11:25 Respiratory Rate 18 01/09/25 11:25 Blood Pressure 144/66 H 01/09/25 11:25 Pulse Oximetry 97 01/09/25 11:25 Oxygen Delivery Room Air 01/09/25 10:41 Lab Data 01/09/25 11:35 01/09/25 11:35 Labs: Lab Results 01/09/25 Range/Units 11:35 WBC 7.0 (4.5-10.0) K/mm3 RBC 4.46 L (4.6-6.20) M/mm3 Hgb 12.9 L (14.0-18.0) g/dL Hct 40.2 L (42.0-52.0) % MCV 90.1 (80-100) fl MCH 28.9 (26-34) pg MCHC 32.1 (32-36) g/dl RDW 12.7 (11.5-14.5) % Plt Count 162 (150-375) k/mm3 MPV 11.1 H (7.4-10.4) fl Immature Gran % (Auto) 0.3 (0-0.5) % Neut % (Auto) 69.3 (45.5-73.1) % Lymph % (Auto) 18.1 L (18.3-44.2) % [place] % (Auto) 9.7 H (2.6-8.5) % Eos % (Auto) 1.9 (0-4.4) % Baso % (Auto) 0.7 (0.2-1.2) % Lymph # (Auto) 1.27 (0.9-3.2) K/mm3 [place] # (Auto) 0.7 H (0.1-0.6) K/mm3 Eos # (Auto) 0.1 (0-0.3) K/mm3 Baso # (Auto) 0.1 (0.0-0.1) K/mm3 Abs Immat Gran (auto) 0.02 (0.00-0.031) K/mm3 Absolute Neuts (auto) 4.9 (1.3-6.7) K/mm3 Absolute Nucleated RBC 0.000 (0.0-0.012) K/mm3 Nucleated RBC % 0.0 (0.0-0.2) % Sodium 139 (137-145) mmol/L Potassium 3.6 (3.4-5.0) mmol/L Chloride 107 (98-107) mmol/L Carbon Dioxide 25 (22-30) mmol/L Anion Gap 7 (4-12) mmol/L BUN 14 (9-20) mg/dL Creatinine 0.77 (0.7-1.3) mg/dL Estim Creat Clear Calc 112 ml/min Estimated GFR > 60 (59 - ) Glucose 114 H (65-110) mg/dL Calcium 9.2 (8.4-10.2) mg/dL Total Bilirubin 0.9 (0.2-1.3) mg/dL AST 44 (17-59) U/L ALT 34 (6-50) U/L Alkaline Phosphatase 84 (38-126) U/L Total Protein 6.6 (6.3-8.2) g/dL Albumin 3.9 (3.5-5.1) g/dL Imaging Data Radiologist's impression: ITS Impressions Chest X-Ray 01/09/25 12:12 IMPRESSION: 1. No acute cardiopulmonary disease. Discharge Plan Discharge Clinical Impression: Vertigo Patient Disposition: Home Condition: Stable Instructions: Vertigo (ED) Additional Instructions: Return ER if you have new weakness in arm or leg, have slurred speech, you develop chest pain with shortness of breath, or you have additional concerns. Patient Language: [place] Islander Prescriptions: New meclizine 25 mg tablet 25 mg PO TID Qty: 14 0RF No Action atorvastatin 40 mg tablet 40 mg DIRECTED coQ10 (ubiquinol) 100 mg Capsule 100 mg PO DAILY diltiazem HCl [DILT-XR] 120 mg Capsule,Ext.Rel 24h Degradable 120 mg PO DAILY lisinopril-hydrochlorothiazide 20-25 mg Tablet 1 tablet PO DAILY aspirin [Aspir-81] 81 mg Tablet,Delayed Release (Dr/Ec) 81 mg DIRECTED Follow-up/Referrals: Edna,Brain Fairchild MD [Primary Care Provider] - 1 Week
== END 2025-01-09 14:28 | disposition home or self-care (01) ==
PROVIDERS: Emergency Provider Emergency Medicine; PCP Family Medicine
DX: R42 Dizziness and giddiness (principal); I10 Essential (primary) hypertension; E78.5 Hyperlipidemia, unspecified; E66.9 Obesity, unspecified; Z68.37 Body mass index [BMI] 37.0-37.9, adult; R94.31 Abnormal electrocardiogram [ECG] [EKG]
CPT/HCPCS: 36415; 71046; 80053; 85025; 93005; 99284; A9270

== ENCOUNTER 2025-02-27 11:55 | Emergency (ER) | payer MEDICARE, MEDICAID, SELFPAY ==
--- NOTE | ~2025-02-27 | XR_ITS ---
EXAMINATION: XR ankle LT min 3V, 02/27/2025 12:10 CDT HISTORY: pain COMPARISON: No comparisons available. Findings: No acute fracture or malalignment. Moderate degenerative changes. Soft tissues unremarkable. Impression: No acute fracture or malalignment. Reviewed, dictated and finalized at location A. Impression: No acute fracture or malalignment.
[2025-02-27 12:02] VITALS: BP 150/76; PULSE 84; RESP 16; TEMP 36.9; O2SAT 99
--- NOTE | 2025-02-27 12:43 | ED.EXTPRO ---
HPI - Extremity Problem General Chief complaint: Extremity Problem,Nontraumatic Stated complaint: left ankle pain Time Seen by Provider: 02/27/25 12:25 Source: patient and RN notes reviewed Mode of arrival: ambulatory Limitations: no limitations History of Present Illness HPI Narrative: 69-year-old male presents [facility] complaining of left ankle injury yesterday. Patient was given out of his truck when he accidentally rolled his left ankle. Patient denies falling to the ground or any other injuries. Patient reporting pain to lateral side of his ankle along with swelling. Patient is able to bear weight on his left ankle. Patient is using a cane to help walk around to the pain. Patient has been doing ice to help the swelling. Patient denies any significant past medical history. Related Data Home Medications ?Medication ?Instructions ?Recorded ?Confirmed ?Last Taken ?Type aspirin 81 mg tablet,delayed 81 mg DIRECTED 01/13/20 10/26/23 10/25/23 History release (Aspir-) diltiazem HCl 120 mg 120 mg PO DAILY 01/13/20 10/26/23 10/25/23 History capsule,extended release 24 hr, controlled (DILT-XR) Held on 10/26/23. Instructions: Hold - Resume when okay with your doctor lisinopril 20 1 tablet PO DAILY 01/13/20 10/26/23 10/25/23 History mg-hydrochlorothiazide 25 mg tablet atorvastatin 40 mg tablet 40 mg DIRECTED 01/09/21 10/26/23 10/25/23 History coQ10 (ubiquinol) 100 mg capsule 100 mg PO DAILY 10/26/23 10/26/23 10/25/23 History Allergies Allergy/AdvReac Type Severity Reaction Status Date / Time iodine Allergy Intermediate Dyspnea / Verified 01/09/25 10:43 SOB, RED FACE, red chest, hives Contrast Media Allergy Intermediate Hives / Uncoded 01/09/25 10:43 Red Face, SOB Review of Systems Review of Systems: CONSTITUTIONAL: Denies fever, chills, or sweats. EYES: Denies visual changes, redness, or discharge. ENT: Denies rhinorrhea, congestion, sore throat, or otalgia. CARDIOVASCULAR: Denies chest pain, palpitations, or edema. RESPIRATORY: Denies cough or dyspnea. GASTROINTESTINAL: Denies abdominal pain, nausea, vomiting, or diarrhea. GENITOURINARY: Denies dysuria or hematuria. SKIN: Denies rash, wound, or itching. MUSCULOSKELETAL: Denies back pain, joint pain, or myalgia. Positive for left ankle injury and swelling NEUROLOGIC: Denies headache, numbness, or weakness. PSYCHIATRIC: Denies anxiety or depression. All other systems reviewed are negative, except as documented in HPI. [facility] Past Medical History Medical History Obesity Hyperlipidemia Hypertension Surgical History Surgical History History of orthopedic surgery Family History Family History Father Family history of chronic obstructive pulmonary disease, Onset Age: 72 Family history of emphysema Patient's father is Sibling Family history of chronic obstructive pulmonary disease Family history of diabetes mellitus in first degree relative Social History Social History Smoking status: Never smoker Second hand tobacco smoke exposure: No Smoking end date: 06/06/79 Alcohol intake: never Substance use: never Substance use type: does not use Do You Feel Safe in your Home?: Yes Lack of Transportation: No Lack of Food: Never True Current Housing: I Have Housing Concerned About Future Housing: No Difficulty Paying Gas/Electric Bills: No Difficulty Paying for Meds: No Currently Unemployed: No Education: Trade/Vocational Certificate Difficulty w/ Childcare or Family Care: No Gender identity (if verbalized by the patient): Male Spiritual care concerns: No Comments At the time of my signature, I reviewed and agree with the nursing past medical, surgical, social, and family history. There is no relevant family history pertinent to the patient complaint. Exam Narrative: GENERAL: This is a well-nourished, well-developed adult, in no apparent distress. They are non ill-appearing, nontoxic appearing. HEAD: normocephalic, atraumatic. EYES: Sclera clear/white. Vision is grossly intact. Conjunctiva normal. Extraocular movement intact. EARS: External ears normal Hearing grossly intact. NOSE: External nose normal THROAT: Mucous membranes moist NECK: Neck supple CARDIOVASCULAR: Regular rate and rhythm RESPIRATORY: Respiratory rate normal, respiratory effort nonlabored, no respiratory distress NEURO: awake, alert, and oriented to person, place and time. There were no obvious focal neurologic abnormalities. EXTREMITIES: Left ankle No obvious deformity, injury bruising, redness. Lateral swelling to ankle. Mild pain through full range of motion. Lateral and posterior ankle is tender to palpate. Capillary refill less than 3 seconds. Left pedal Pulse 2 +palpable. Normal sensation. Neurovascular status intact distal injury. Negative Carver's test. Patient able to wiggle his toes. BACK: Nontender without deformity. Course Course Emergency Course: Portions of this record may have been created with voice recognition software Level of Care: Express Care Visit Vital Signs Vital signs: Vital Signs Temperature 98.5 F 02/27/25 12:02 Pulse Rate 84 02/27/25 12:02 Respiratory Rate 16 02/27/25 12:02 Blood Pressure 150/76 H 02/27/25 12:02 Pulse Oximetry 99 02/27/25 12:02 Oxygen Delivery Room Air 02/27/25 12:02 Temperature 98.5 F 02/27/25 12:02 Pulse Rate 84 02/27/25 12:02 Respiratory Rate 16 02/27/25 12:02 Blood Pressure 150/76 H 02/27/25 12:02 Pulse Oximetry 99 02/27/25 12:02 Oxygen Delivery Room Air 02/27/25 12:02 Reviewed MDM - Extremity (Nontraumatic) MDM Narrative Medical decision making narrative: Left ankle x-ray negative for any fractures or acute findings. Incidentally there is moderate degenerative changes noted to the x-ray likely from arthritis. Patient reports a previous fracture to the is left ankle which could been the culprit for arthritic changes. Patient given Kenan wrap for compression. Patient has been using a cane to help ambulate, offered crutches any decline. Recommend conservative therapy. Advised patient to follow-up with PCP ortho 10 days if pain is persisting or any other concerns. Discussed physical exam findings. Advised supportive measures and signs/symptoms to go to the ER. Pt is appropriate for outpt treatment and f/u. Differential Diagnosis Differential diagnosis: Likely other (Ankle fracture, ankle sprain, Achilles tendon rupture, foot sprain, foot fracture) Imaging Data Radiologist's impression: ITS Impressions Ankle X-Ray 02/27/25 12:21 Impression: No acute fracture or malalignment. Critical Care Time Critical Care Time Critical Care Time: No Discharge Plan Discharge Clinical Impression: Injury of left ankle Patient Disposition: Home Condition: Stable Instructions: Ankle Sprain (ED) Additional Instructions: The x-ray of your left ankle is negative for any fractures or acute findings. There is moderate arthritic changes noted to your ankle. Rest and elevate the leg; bear weight as tolerated Apply ice 15-20 minute intervals several times a day Keep it wrapped with KENAN or use a soft ankle splint If you are allowed by your primary, you may take Tylenol or ibuprofen as needed for pain. You may take ibuprofen 600 mg to 800 mg every 6-8 hours. Do not exceed more than 800 mg of ibuprofen per dose. Do not exceed more than 3200 mg ibuprofen in a day. You may take up to 1000 mg Tylenol every 6-8 hours. Do not exceed 1000 mg per dose, do exceed more than 4000 mg of Tylenol in a day. Follow up with your primary care provider or orthopedist as needed in 1-2 weeks especially pain is persisting after 10 days. Patient Language: Malawian Prescriptions: No Action atorvastatin 40 mg tablet 40 mg DIRECTED coQ10 (ubiquinol) 100 mg Capsule 100 mg PO DAILY diltiazem HCl [DILT-XR] 120 mg Capsule,Ext.Rel 24h Degradable 120 mg PO DAILY lisinopril-hydrochlorothiazide 20-25 mg Tablet 1 tablet PO DAILY aspirin [Aspir-81] 81 mg Tablet,Delayed Release (Dr/Ec) 81 mg DIRECTED meclizine 25 mg tablet 25 mg PO TID Qty: 14 0RF Follow-up/Referrals: Gomez Ambrose MD [Physician, Orthopedics] Edna,Brain Fairchild MD [Primary Care Provider] Time of Disposition: 12:41
== END 2025-02-27 12:52 | disposition home or self-care (01) ==
PROVIDERS: PCP Family Medicine
DX: S99.912A Unspecified injury of left ankle, initial encounter (principal); X50.9XXA Other and unspecified overexertion or strenuous movements or postures, initial encounter; Z87.891 Personal history of nicotine dependence; I10 Essential (primary) hypertension; E78.5 Hyperlipidemia, unspecified; E66.9 Obesity, unspecified; Z68.35 Body mass index [BMI] 35.0-35.9, adult; Z79.82 Long term (current) use of aspirin
CPT/HCPCS: 73610; 99213; G0463